=== PATIENT | male | born 2005 | race Caucasian/White ===

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

== ENCOUNTER 2024-01-29 13:50 | Day surgery (SDC) | payer BC ==
[2024-01-28 12:25] VITALS: BMI 21.1
[2024-01-29] MEDS: LACTATED RINGERS 1,000 ML IV ONE (15:30)
[2024-01-29 16:08] VITALS: RESP 16; TEMP 98.9
[2024-01-29] MEDS ORDERED: PROPOFOL 10 MG/ML 20 ML VIAL IV ONE (16:36)
--- NOTE | 2024-01-29 16:49 | P.PCN ---
Date of Procedure: 01/29/24 Procedure(s) Performed: BRIEF HISTORY: Patient is a 18-year-old, pleasant, white male scheduled for an upper endoscopy for evaluation of heartburn and occasional dysphagia to solids. He was diagnosed with a eosinophilic esophagitis to each 10 and has been avoiding dairy since then. Lately has been having symptoms. Was on budesonide for several years but developed adrenal insufficiency and has been off the medication for 4 years. Currently on omeprazole 20 mg daily.. PROCEDURE PERFORMED: Esophagogastroduodenoscopy with biopsy. PREOPERATIVE DIAGNOSIS: Dysphagia/GERD/history of eosinophilic esophagitis. IV sedation per anesthesia. PROCEDURE: After informed consent was obtained, the patient was brought into the endoscopy unit. IV sedation was administered by Anesthesia under continuous monitoring. Initially the Olympus GIF-140 video endoscope was inserted into the mouth. Esophagus intubated without any difficulty. It was gradually advanced into the stomach and duodenum and carefully examined. The bulb and the second part of the duodenum appeared normal. Biopsies were done from the duodenum to evaluate for celiac disease. The scope at this time was withdrawn to the stomach, adequately insufflated with air, and upon careful examination, mucosa of the antrum, mild gastritis and biopsies were done from this area. Mucosa of the body, cardia and the fundus appeared normal. The scope was then withdrawn into the esophagus. The GE junction was located at 39 cm from the incisors. S mall hiatal hernia noted. Mucosa of the mid and distal esophagus revealed thickened esophageal folds with longitudinal ridges and follows all consistent with eosinophilic esophagitis and multiple biopsies were done to the mid and distal esophagus. The rest of the esophagus appeared normal. The patient tolerated the procedure well. IMPRESSION: 1. Thickened esophageal folds with multiple longitudinal ridges and follows involving the mid and distal esophagus consistent with eosinophilic esophagitis s/p multiple biopsies. 2. Small hiatal hernia 3. Mild antral gastritis. RECOMMENDATIONS: The findings of this examination were discussed with the patient as well as his family. He was advised to follow-up the biopsy results. Continue with omeprazole 20 mg daily. Follow-up in the office in 3 to 4 weeks.
[2024-01-29 17:25] VITALS: BP 127/66; PULSE 69
== END 2024-01-29 17:41 | disposition home or self-care (01) ==
LOC: ORWHC2ENDO 13:50
PROVIDERS: ATTEND Internal Medicine Gastroenterology
DX: D72.10 Eosinophilia, unspecified (principal); K29.50 Unspecified chronic gastritis without bleeding; K21.00 Gastro-esophageal reflux disease with esophagitis, without bleeding; K44.9 Diaphragmatic hernia without obstruction or gangrene; K21.9 Gastro-esophageal reflux disease without esophagitis; Z79.899 Other long term (current) drug therapy
CPT/HCPCS: 88305; 43239; J2704